=== PATIENT | female | born 1975 | race Caucasian/White ===

== ENCOUNTER 2017-10-16 08:53 | Outpatient (CLI) | payer OTHER ==
[2017-10-16] MEDS ORDERED: Iopamidol 370 76% 100 ML VIAL ONE (09:00)
--- NOTE | 2017-10-16 10:48 | CT ---
CT ABDOMEN AND PELVIS PERFORMED WITH CONTRAST ENHANCEMENT: History: Left lower quadrant pain. Comparison: 06-27-10 FINDINGS: The lung bases are clear. The liver, spleen, pancreas, and gallbladder regions all appear unremarkable. Right and left adrenal glands and right and left kidneys are normal in size. There is what appears to be a tiny cyst involving the right kidney. There is no significant periaortic or mesenteric adenopat hy. CT OF PELVIS PERFORMED WITH CONTRAST ENHANCEMENT: There is a left adnexal cyst present, it measures approximately 2 cm. There is enhancement to the wal l and some trace free fluid seen. There is no adenopathy or mass. Prominent periuterine vessels are i ncidentally noted. IMPRESSION: 1. 2 cm left ovarian cyst. POS: MARY
== END 2017-10-16 08:54 | disposition home or self-care (01) ==
LOC: SCSCT 08:53
PROVIDERS: ATTEND Family Medicine
DX: R10.30 Lower abdominal pain, unspecified (principal); N83.202 Unspecified ovarian cyst, left side
CPT/HCPCS: 74177

== ENCOUNTER 2022-06-13 12:03 | Outpatient (CLI) | payer OTHER | END 2022-06-13 12:04 | disposition home or self-care (01) | LOC: SCSMRI 12:03 | PROVIDERS: ATTEND Family Medicine | DX: R22.42 Localized swelling, mass and lump, left lower limb (principal) ==

== ENCOUNTER 2022-06-19 08:35 | Outpatient (CLI) | payer OTHER ==
[2022-06-19 09:51] LABS: Anion Gap 13 mmol/L (10-20); BUN (Urea Nitrogen) 11 mg/dL (7.0-18.7); Calc. Creatinine Clearance 0 mL/min (70-130); Calcium 8.9 mg/dL (7.8-10.44); Carbon Dioxide 26 mmol/L (22-29); Chloride 104 mmol/L (98-107); Estimated GFR 87; Glucose 96 mg/dL (70-105); Potassium 4.4 mmol/L (3.5-5.1); Sodium 139 mmol/L (136-145)
== END 2022-06-19 08:36 | disposition home or self-care (01) ==
LOC: LABBT 08:35
PROVIDERS: ATTEND Surgery
DX: Z01.812 Encounter for preprocedural laboratory examination (principal); M79.89 Other specified soft tissue disorders
CPT/HCPCS: 80048